=== PATIENT | male | born 1940 | race Caucasian/White ===

== ENCOUNTER 2023-03-17 13:37 | Emergency (ER) | payer MEDICARE ==
[~2023-03-17] VITALS: Ht 177.8 cm; Wt 73.0 kg
[2023-03-17] MEDS ORDERED: LISINOPRIL10 MG PO (15:17)
[2023-03-17] MEDS ORDERED: LEVOTHYROXINE125 MC1 PO (15:17)
[2023-03-17] MEDS ORDERED: NORVASC5 MG PO (15:18)
[2023-03-17] MEDS ORDERED: SERTRALINE HCL50 MG PO (15:18)
[2023-03-17] MEDS ORDERED: SEROQUEL50 MG PO (15:19)
[2023-03-17 16:02] LABS: BILIRUBIN, URINE NEGATIVE (negative); BLOOD/HGB, URINE NEGATIVE (Negative); KETONE, URINE NEGATIVE (Negative); LEUK ESTERASE, URINE NEGATIVE (negative); NITRITE, URINE NEGATIVE (negative)
[2023-03-17] MEDS ORDERED: CEPHALEXIN500 M1 PO (16:08)
[2023-03-17 16:33] VITALS: BP 192/99
== END 2023-03-17 16:34 | disposition home or self-care (01) ==
LOC: ED 13:37
PROVIDERS: Emergency Medicine
DX: L03.115 Cellulitis of right lower limb (principal); E11.9 Type 2 diabetes mellitus without complications; I10 Essential (primary) hypertension; E78.5 Hyperlipidemia, unspecified; Z79.890 Hormone replacement therapy; Z79.899 Other long term (current) drug therapy
CPT/HCPCS: 81003; 99283; A9270